=== PATIENT | male | born 1970 | race Caucasian/White ===

== ENCOUNTER 2018-03-27 12:04 | Outpatient (REF) | payer MEDICAID, SELFPAY ==
[2018-03-27 19:05] LABS: HCT 42.5 % (40.0-50.0); HGB 15.1 g/dL (13.5-17.5); Mean Corp. HGB Concentration 35.5 g/dL (32.0-36.0); Mean Corpuscular Hemoglobin 29.2 pg (27.0-33.0); Mean Corpuscular Volume 82.2 fL (80-95); Platelet Count 168 x1000/uL (130-400); RBC 5.17 m/cumm (4.50-6.00); RBC Distribution Width 13.5 % (11.8-14.1); White Blood Cell Count 11.03 k/cumm (4.4-10.8)
[2018-03-27 19:13] LABS: Mono Screening Negative (Negative)
== END 2018-03-27 12:05 ==
LOC: NCHCN 12:04
PROVIDERS: PCP Physician Assistant Medical; Visit Provider Nurse Practitioner Family
DX: R50.9 Fever, unspecified (principal)
CPT/HCPCS: 85027; 86308

== ENCOUNTER 2021-12-27 15:56 | Outpatient (REF) | payer BC, SELFPAY ==
[2021-12-27 16:26] LABS: Source Nasal/Nares
[2021-12-27 20:33] LABS: COVID-19 PCR Negative (Negative)
== END 2021-12-27 15:57 | disposition home or self-care (01) ==
LOC: LBN 15:56
PROVIDERS: PCP Nurse Practitioner Family; Visit Provider Surgery
DX: Z20.822 Contact with and (suspected) exposure to COVID-19 (principal); Z01.818 Encounter for other preprocedural examination
CPT/HCPCS: 87635

== ENCOUNTER 2021-12-28 10:55 | Day surgery (SDC) | payer BC, MEDICAID, SELFPAY ==
[2021-12-28 11:10] VITALS: BP 148/90; PULSE 75; RESP 16; TEMP 36.1; O2SAT 98
[2021-12-28] MEDS: Acetaminophen 500 MG TAB 1000 MG PO (11:22)
[2021-12-28] MEDS: Gabapentin 300 MG CAP 600 MG PO (11:22)
[2021-12-28] MEDS: Lactated Ringers 1,000 ML 80 ML IV (11:36)
--- NOTE | 2021-12-28 11:47 | W.ANESPRE ---
General Info Date of Service Date Performed: 12/28/21 Height: 6 ft 1 in Weight: 112.2 kg Body Mass Index (BMI): 32.6 Surgical Procedure: Operation Date: 12/28/21 12:10 Proposed Procedure Side Surgeon p I&D Sebacous Cyst on Back Nena Joiner, DO Meds Allergies and Home Medications Allergies Allergy/AdvReac Type Severity Reaction Status Date / Time No Known Drug Allergies Allergy Verified 12/28/21 11:20 Home Medication Medication Instructions Recorded Unknown [No Known Home Meds] 12/09/21 Current Visit Medications: Current Medications Generic Name Dose Route Start Last Admin Trade Name Freq PRN Reason Stop Dose Admin Acetaminophen 1,000 mg 12/28/21 06:00 12/28/21 11:22 Acetaminophen 500 Mg Tab PO 01/27/22 23:59 1,000 mg PREOP JACOB Administration Gabapentin 600 mg 12/28/21 06:00 12/28/21 11:22 Gabapentin 300 Mg Cap PO 01/27/22 23:59 600 mg PREOP JACOB Administration Ringer's Solution 1,000 mls @ 80 mls/hr 12/28/21 06:00 12/28/21 11:36 IV 01/27/22 23:59 80 mls/hr INFUSION JACOB Administration Cefazolin Sodium/Dextrose 2 gm in 50 mls @ 100 mls/hr 12/28/21 06:00 Ancef Duplex IVPB 01/27/22 23:59 PREOP JACOB IV Miscellaneous Supplies 1 each 12/28/21 06:00 Iv Access IV 01/27/22 23:59 DIRECTED JACOB Sodium Chloride 0 ml 12/28/21 06:00 Normal Saline Flush 10 Ml Syr IV 01/27/22 23:59 PRN PRN Sodium Chloride 0 ml 12/28/21 06:00 Normal Saline 10 Ml Vial IJ 01/27/22 23:59 DIRECTED PRN Sterile Water 0 ml 12/28/21 06:00 Water,Injection,Sterile 10 Ml Vial IJ 01/27/22 23:59 DIRECTED PRN PFSH Active Problems Active Problems: Problem Status Onset Code Abscess of back L02.212 Infected sebaceous cyst of skin L72.3, L08.9 Medical History Medical History Recurrent unilateral inguinal hernia with incarceration Snoring Surgical History Surgical History (Updated 12/28/21 @ 11:20 by Whitney Durham) H/O hernia repair Tobacco Smoking/Tobacco Use Status: Never Alcohol Alcohol Intake: current Alcohol intake frequency: holidays/special occasions only Substance Use Substance use: Never Substance use type: does not use Vital Signs and Lab Results Vital Signs Most Recent Vital Signs in EMR: Most Recent Vital Signs Temp Pulse Resp BP Pulse Ox 36.1 C L 75 16 148/90 H 98 12/28/21 11:10 12/28/21 11:10 12/28/21 11:10 12/28/21 11:10 12/28/21 11:10 Lab Results Blood Type / Crossmatch: No Data to Display Complete Blood Count: No Data to Display Complete Metabolic Panel: No Data to Display Liver Function Panel: No Data to Display Coagulation Panel: No Data to Display Cardiac Panel: No Data to Display Arterial Blood Gas: No Data to Display Venous Blood Gas: No Data to Display Pancreas Panel: No Data to Display Thyroid Panel: No Data to Display Infectious Disease: Coronavirus (COVID-19)(PCR) Negative (Negative) 12/27/21 15:50 Coronavirus 2019 Source Nasal/Nares 12/27/21 15:50 Blood Cultures: No Data to Display Toxicology Panel: No Data to Display Anesthesia Assessment and Plan Anesthesia History Personal History: No History of Anesthesia Complications Family History: No Family History of Anesthesia Complications Exercise Tolerance Exercise Tolerance: Metabolic Equivalents>4 Pertinent Negatives Pertinent Negatives: No Symptoms of GERD, No Major Cardiovascular Symptoms or Complaints and No Major Pulmonary Symptoms or Complaints Cardiac & Pulmonary Exam Cardiac Exam: Normal S1/S2 Heart Sounds Pulmonary Exam: Clear Bilateral Breath Sounds Implantable Cardiac Device Does patient have a Pacemaker or an ICD?: No Airway Exam Known Difficult Airway: No Mallampati Class: 1 Mouth Opening: Normal (> 3cm) Thyromental Distance: Greater than 3 cm Neck Range of Motion: Full ROM Neck Circumference: Normal Teeth Condition: Normal Dentition ASA Classification ASA Score: ASA 2 Emergency Case?: No NPO Status NPO Status: NPO Clears >2 hours, Solids >8 hours Anesthesia Plan Resuscitation Status: Full Code Anesthesia Technique: General Anesthesia Airway Planned: Natural Airway Monitors Used: Standard Monitors
[2021-12-28 11:52] VITALS: BMI 32.6
[2021-12-28] MEDS: ceFAZolin 2 GM/50 ML BAG IVPB (13:31)
[2021-12-28] MEDS: Bupivacaine 0.5% Pres-Free W/EPI 10 ML VIAL (13:32)
[2021-12-28 13:55] VITALS: BP 138/87; PULSE 82; RESP 16; TEMP 36.3; O2SAT 97
--- NOTE | 2021-12-28 14:08 | W.PM.DSUDISC ---
Discharge Plan Disposition Patient Disposition: HOME Condition: Good Discharge Details Reason For Visit: CHRONICALY INFECTED Attending Provider: Nena Joiner Primary Care Provider: Diana Lopez Home Meds and New Rx's Prescriptions: New tramadol [Ultram] 50 mg tablet 50 mg PO Q4H PRNQty: 7 0RF Discharge Instructions Additional Instructions: Wound Care Instruction Pain Control Use ice!? Ice keeps the swelling down and swelling is what causes pain.? Never apply ice directly to the skin.? Wrap it in a towel or cloth.? Apply ice 20 minutes on and 20 minutes off for pain control.? Use as needed. Take Tylenol 500 mg by mouth with food every 4 hours as needed for pain. Or ibuprofen 600 mg by mouth with food every 6 hours as needed for pain.? Do not take Tylenol if you have a history of heavy drinking, hepatitis C or liver problems.? Do not take ibuprofen if you have a history of stomach ulcers/problems, bleeding problem or kidney issues. ? Always wash your hands before touching your incision. ? Keep the incision clean, dry, and out of water, keep the incision out of water. ? Do not to pick at the scabs. Scabs help protect the wound. ? You can take a shower in 24 hours and wash the incision with soap and water. Pat dry/don?t scrub. It?s OK to wash around the incision. But don?t spray water directly on it. ? Pat stitches dry if they get wet. Don't rub. ? Check the incision site daily for pain, redness, drainage, swelling, or separation of the incision edges. ? Make sure any clothing that touches the incision is loose-fitting. This will prevent rubbing. If the incision is on the head, keep your child from wearing caps or other head coverings. These may rub against the incision. As your incision heals, the skin may appear pink or red. It may also feel slightly bumpy or raised. This is called a healing ridge. Over time, the color should fade and the raised skin will become less noticeable. ? When to seek medical care Call your healthcare provider right away if you have any of these: ? More pain, redness, swelling, bleeding, or foul-smelling discharge around the incision area ? Fever of 101?F (38.3?C) or higher, or as directed by your child's healthcare provider ? Shaking chills ? Vomiting or nausea that doesn?t go away ? Numbness, coldness, or tingling around the incision area, or changes in skin color ? Opening of the sutures or wound -Stitches or haley that come apart or fall out or surgical tape falls off before 7 days, or as directed by your healthcare provider ?[facility]: [phone] ?-you also have Ultram to use for pain >7. For the first 24hrs take tylenol or advil continuously, not just when you have pain. -use ice -follow up w/ Sherrie in Surgery clinic on 12/29 at 1pm for packing change. -There are TWO cavities on either side of the wound (4pm & 7PM). each cavity will need to be packed. -keep clean and dry -Does not require further antibiotics ? ?Your health care provider has covered your wound with a wet-to-dry dressing. With this type of dressing, a wet (or moist) gauze dressing is put on your wound and allowed to dry. Wound drainage and tissue can be removed when you take off the old dressing. Follow any instructions you are given on how to change the dressing. Use this sheet as a reminder. What to Expect at Home Your provider will tell you how often you should change your dressing at home. As the wound heals, you should not need as much gauze or packing gauze. Removing the Old Dressing Follow these steps to remove your dressing: ? Wash your hands thoroughly with soap and warm water before and after each dressing change. Remove the old dressing. If it is sticking to your skin, wet it with warm water to loosen it. ? Remove the gauze pads or packing tape from inside your wound. ? Changing Your Dressing Follow these steps to put a new dressing on: ? Place the gauze pads or packing tape in your wound. Carefully fill in the wound and any spaces under the skin.? Use a cotton tip applicator to gently push the packing material into the wound. ? Cover the wet gauze or packing tape with a large dry dressing pad. Use tape or rolled gauze to hold this dressing in place. ? Wash your hands again when you are finished. When to Call the Doctor Call your doctor if you have any of these changes around your wound: ? Worsening redness ? More pain ? Swelling ? Bleeding ? It is larger or deeper ? It looks dried out or dark ? The drainage is increasing ? The drainage has a bad smell Also call your doctor if: ? Your temperature is 100.5?F (38?C), or higher, for more than 4 hours ? Drainage is coming from or around the wound ? Drainage is not decreasing after 3 to 5 days ? Drainage is increasing ? Drainage becomes thick, hooks, yellow, or smells bad ? Stand Alone Forms: Anesthesia Discharge Inst., Laith Whittaker (DSU) Activity:: see above Remove Dressings/Wound Care:: 24 hours Shower/Bathe:: 24 hours Diet:: As Tolerated
--- NOTE | 2021-12-28 14:10 | W.ANESPOSTOP ---
Postoperative Evaluation Date, Time and Location Date Performed: 12/28/21 Time Performed: 13:10 Patient Location: Day Surgery Unit Vital Signs Most Recent Imported Vital Signs: Most Recent Vital Signs Temp Pulse Resp BP Pulse Ox 36.3 C L 82 16 138/87 97 12/28/21 13:55 12/28/21 13:55 12/28/21 13:55 12/28/21 13:55 12/28/21 13:55 Pain Score Most Recent Pain Score: Most Recent Pain Score Pain Level 0 12/28/21 13:55 Assessment Mental Status: Awake (Alert & Oriented to Patient Baseline) Airway and Respiratory Function: Patent airway with normal (patient baseline) respiratory exam Cardiovascular Function: Hemodynamically Stable Hydration Status: Adequately Hydrated Nausea & Vomiting: No Nausea or Vomiting Pain: Pt. Denies Any Pain Peripheral Nerve Block: Patient did not receive a nerve block
--- NOTE | 2021-12-28 14:18 | ROE_ITS ---
Date of service: 12/28/21 Time of Service: 16:13 Operative Note Operative Note DATE OF PROCEDURE: 12/28/21 PRE-OP DIAGNOSIS: I&D of chronically infected magda cyst POST-OP DIAGNOSIS: same PROCEDURE: I & D SURGEON: Nena Joiner PUBLICATIONS DISTRIBUTION CLERK: Gabbi Real ANESTHESIA TYPE: Local By Surgeon and General:No Airway Refer to Anesthesia Record ESTIMATED BLOOD LOSS: 5 PATHOLOGY: other (culttures were taking prior to starting abx ) COMPLICATIONS: None Patient was transported to: same day Patient's condition: stable Procedure Description: Patient has had an infected sebaceous cyst with abscess for approximately 6 weeks now. He was originally seen up at [facility] and was placed on antibiotics and had an incision and drain done. The wound closed up and the abscess came back. I drained the cyst again in my office on 12/09. The wound continues to not heal and continues to breakdown. I did attempt to do an I&D in my office on 12/27. Patient did not tolerate this well. Patient is here today for repeat I&D with sedation. Informed consent is obtained explaining risks and benefits of procedure including but not limited to bleeding, infection, complications of anesthesia, poor cosmesis, need for continued packing, etc. Patient is marked in preop. He is brought to the surgical suite and placed in the prone position with all bony surfaces padded. Anesthesia is administered per the department of anesthesia. Patient is prepped and draped in usual sterile fashion using a Betadine scrub solution. Timeout is performed. He did receive antibiotics. Aerobic and anaerobic cultures were taking prior to prepping and draping. The incision is infiltrated with 10 cc of 1% lidocaine. Elliptical incision is made to excise the old scar tissue. The wound has healed in the center and then there are 2 pockets going off either direction at 4 and 7:00. Each of this is 2 x 2 x 1 cm. The total wound is approximately 4 x 2 x 1 cm. There is no gross purulence. The tissue is erythematous and indurated. It has the consistency of slimy granulation which is a sign of chronic and infection and unhealthy healing. A ll this tissue was removed sharply with a curette. Bleeding is controlled with electrocautery. It is irrigated with 1 L of saline. The wound is then packed with wet to dry gauze and sterile compression dressing is applied. Patient tolerated the procedure well without complication and transferred to same-day surgery in stable condition. Patient will follow-up in a.m. for dressing change. He will continue to do packing of the wound. He does not require further antibiotics.
[2021-12-28 14:25] VITALS: BP 139/101; PULSE 73; RESP 15; TEMP 36.7; O2SAT 99
[2021-12-28] MEDS: traMADol 50 MG TAB PO (14:34)
[2021-12-28 14:50] VITALS: BP 153/84; PULSE 67; RESP 16; TEMP 36.7; O2SAT 99
== END 2021-12-28 15:20 | disposition home or self-care (01) ==
PROVIDERS: PCP Nurse Practitioner Family; Visit Provider Surgery
PROC: 0JB70ZZ Excision of Back Subcutaneous Tissue and Fascia, Open Approach (ICD-10-PCS; CPT 11042; principal; 2021-12-28 12:00)
DX: L72.3 Sebaceous cyst (principal)
CPT/HCPCS: 11042; 87077; 87070; 87075; 87186; 87205; J0690; J2250; J3010

== ENCOUNTER 2022-12-30 06:14 | Day surgery (SDC) | payer BC, MEDICAID, SELFPAY ==
--- NOTE | 2022-12-29 17:09 | W.ANESPRE ---
General Info Date of Service Date Performed: 12/30/22 Height: 6 ft 2 in Weight: 118.955 kg Body Mass Index (BMI): 33.6 Surgical Procedure: Operation Date: 12/30/22 07:35 Proposed Procedure Side Surgeon kevin Carlton MD Meds Allergies and Home Medications Allergies Allergy/AdvReac Type Severity Reaction Status Date / Time No Known Drug Allergies Allergy Verified 12/30/22 06:23 Current Visit Medications: Current Medications Generic Name Dose Route Start Last Admin Trade Name Freq PRN Reason Stop Dose Admin Ringer's Solution 1,000 mls @ 80 mls/hr 12/30/22 06:00 IV 01/28/23 23:59 INFUSION JACOB IV Miscellaneous Supplies 1 each 12/30/22 06:00 Iv Access IV 01/28/23 23:59 DIRECTED JACOB Sodium Chloride 0 ml 12/30/22 06:00 Normal Saline Flush 10 Ml Syr IV 01/28/23 23:59 PRN PRN Sodium Chloride 0 ml 12/30/22 06:00 Normal Saline 10 Ml Vial IJ 01/28/23 23:59 DIRECTED PRN Sterile Water 0 ml 12/30/22 06:00 Water,Injection,Sterile 10 Ml Vial IJ 01/28/23 23:59 DIRECTED PRN PFSH Active Problems Active Problems: Problem Status Onset Code Hypergranulation L92.9 Abscess of back L02.212 Medical History Medical History (Updated 12/29/22 @ 23:49 by Palomo Carlton MD) Recurrent unilateral inguinal hernia with incarceration Snoring Surgical History Surgical History (Updated 12/29/22 @ 11:10 by Benoit Brady) H/O hernia repair Hx of wisdom tooth extraction Tobacco Smoking/Tobacco Use Status: Current every day Tobacco Type: cigarettes Smoking cigarettes per day: 3 Alcohol Alcohol Intake: current Alcohol intake frequency: a few times a month Substance Use Substance use: Never Substance use type: does not use Vital Signs and Lab Results Vital Signs Most Recent Vital Signs in EMR: Temp Pulse Resp BP Pulse Ox 36.5 C 92 H 18 141/98 H 97 12/30/22 06:23 12/30/22 06:23 12/30/22 06:23 12/30/22 06:23 12/30/22 06:23 Lab Results Blood Type / Crossmatch: No Data to Display Complete Blood Count: No Data to Display Complete Metabolic Panel: No Data to Display Liver Function Panel: No Data to Display Coagulation Panel: No Data to Display Cardiac Panel: No Data to Display Arterial Blood Gas: No Data to Display Venous Blood Gas: No Data to Display Pancreas Panel: No Data to Display Thyroid Panel: No Data to Display Infectious Disease: No Data to Display Blood Cultures: No Data to Display Toxicology Panel: No Data to Display Anesthesia Assessment and Plan Anesthesia History Personal History: No History of Anesthesia Complications Family History: No Family History of Anesthesia Complications Exercise Tolerance Exercise Tolerance: Metabolic Equivalents>4 Cardiac & Pulmonary Exam Cardiac Exam: Normal S1/S2 Heart Sounds Pulmonary Exam: Clear Bilateral Breath Sounds Implantable Cardiac Device Does patient have a Pacemaker or an ICD?: No Airway Exam Known Difficult Airway: No Mallampati Class: 1 Mouth Opening: Normal (> 3cm) Thyromental Distance: Greater than 3 cm Neck Range of Motion: Full ROM Neck Circumference: Normal Teeth Condition: Normal Dentition ASA Classification ASA Score: ASA 2 Emergency Case?: No NPO Status NPO Status: NPO Clears >2 hours, Solids >8 hours Anesthesia Plan Resuscitation Status: Full Code Anesthesia Technique: General Anesthesia Airway Planned: Natural Airway Monitors Used: Standard Monitors Preoperative Comments:: 52 yo male for colo. Sig PMHx: snores, smoker (0-3 cigarettes a day), occ EtOH, denies other major health issues. Previous Anes: - back abscess, fent/midaz, prop, natural airway
--- NOTE | 2022-12-29 23:49 | W.PM.DSUDISC ---
Date of service: 12/30/22 Time of Service: 08:08 Discharge Plan Disposition Patient Disposition: Home Condition: Good Discharge Details Reason For Visit: Screening colonoscopy Attending Provider: Palomo Carlton Primary Care Provider: Diana Lopez Home Meds and New Rx's Prescriptions: Discontinued polyethylene glycol 3350 17 gram/dose powder 238 g PO ONCE Qty: 238 0RF Rx Instructions: take per colonoscopy instructions bisacodyl [Dulcolax (bisacodyl)] 5 mg tablet,delayed release (DR/EC) 5 mg PO ONCE Qty: 4 0RF Rx Instructions: take per colonoscopy instructions Discharge Instructions Instructions: Colorectal Polyps (GEN) Additional Instructions: José, we are able to complete your colonoscopy today without any difficulty. The quality of your prep was very good. He did have 2 polyps. I removed both these completely. I will be in touch when I have the results of the pathology reports. 1. If tolerated, consume a soft, low fiber diet for 1-2 days. 2[address] Do not drive, drink alcohol, operate machinery, make critical decisions, or do activities that require coordination or balance for 24 hours. 3. Because air was put into your colon during the procedure, expelling air from your rectum (passing gas or farting) is normal. 4. You may not have a bowel movement for 1-3 days because of the colonoscopy prep. This is normal. 5. Go directly to the emergency room if you notice any of the following: Develop chills (warm to touch), or if you have a thermometer and your temperature is above 101 Difficulty breathing or difficultly swallowing Persistent vomiting Severe abdominal pain, other than gas cramps Severe chest pain Black, tarry stools Any bleeding ? exceeding one tablespoon 6. Call your physician if the site where your intravenous was started becomes red, swollen, painful, and warm to touch. 7. Your physician has reviewed your pre-procedure medications. Please continue to take those medications as previously ordered. You will be given specific information/education regarding any changes to your medications before leaving. Activity:: Activity as Tolerated Diet:: As Tolerated Discharge Orders Discharge Orders: Discharge Order (Routine); Ordered 12/29/22 Ordered By: Palomo Carlton DS: Diagnosis Discharge Diagnosis (1) Screening for colon cancer: Status: Acute Asessment and Plan: Follow-up on polypectomy results
--- NOTE | 2022-12-29 23:50 | W.COLOREPORT ---
Date of service: 12/30/22 Time of Service: 08:09 Colonoscopy Report Date of procedure: 12/30/22 Pre-op diagnosis general: Screening colonoscopy Post-op diagnosis procedure note: other (Colon polyps) Procedure: Colonoscopy with polypectomy Surgeon: Palomo Carlton Anesthesia Type: General:No Airway Estimated blood loss (mL): 10 Pathology: other (Colon polyp at 90 cm, colon polyp at 40 cm) Complications: None Disposition: same day Indications: José is a 52 year old male here for his first screening colonoscopy Prep: Miralax/Dulcolax Procedure Start Time: 07:33 Procedure End Time: 07:59 Retraction Time: 19 Findings: Colon polyp at 90 cm, colon polyp at 40 cm Procedure Description: After the induction of monitored anesthetic care, and with the patient in left lateral decubitus position, I began by performing an external anorectal exam.? Perineum and skin were normal, as was the anal verge.? There was no evidence of external hemorrhoids.? Next, I performed a digital rectal exam.? I did not appreciate any abnormal findings.? Next, I advanced a colonoscope into the rectal vault.? I performed retroflexion.? This was normal.? Using insufflation, I then advanced the colonoscope beyond the rectal folds and into the sigmoid colon before advancing towards the cecum.? The quality of the prep was adequate.? The scope was noted to be in the cecum by identification of the ileocecal valve and appendiceal orifice.? I then began withdrawing the colonoscope using repeated irrigation as necessary for full evaluation of the colonic mucosa. Around 90 cm from the anal verge I identified a 0.75 cm polyp. ?It appeared sessile in character. ?I was able to remove this with a snare polypectomy. ?I examined the site, and there was minimal bleeding. ?Once this was completed, I continued to withdraw the scope and examine the remainder of the colonic mucosa. There was also a polyp at just 40 cm from the anal verge. This was a little more pedunculated, almost appendage like. Snare polypectomy was used to remove it at its base. There was minimal bleeding. It was approximately 1 cm long in its greatest dimension once the scope was withdrawn to the level of the rectum, great care was taken to examine portions of the rectal folds.? Finally, the scope was withdrawn and the patient was brought to the same-day surgery recovery unit as the anesthetic wore off. ?The findings and instructions were shared with the patient prior to discharge.
[2022-12-30 06:23] VITALS: BP 141/98; PULSE 92; RESP 18; TEMP 36.5; O2SAT 97
[2022-12-30] MEDS: Lactated Ringers 1,000 ML 80 ML IV (06:45)
[2022-12-30 06:50] VITALS: BMI 33.6
--- NOTE | 2022-12-30 07:47 | BOWEL_PTH ---
PATIENT: Joés Albert LOC: [facility] U#:[id number] AGE/SX: 52/M ROOM: RE12/30/[address]: Palomo Carlton MD : 1970 BED: DIS: 12/30/2022 SPEC #: [id number] RECD: 12/30/22 11:54 STATUS: DRU RE #: [id number] GLORIA: 12/30/22 07:[address]: Palomo Carlton DEPT: Surgical Specimen RECD BY: Dinorah Meyer ENTERED: 12/30/22 11:55 SP TYPE: Bowel OTHR DR: Alyson Lopez Tissues: 1 - BIOPSY BOWEL 2 - BIOPSY BOWEL Procedures: GROSS AND MICRO LEVEL 4 Comments: [id number]
[2022-12-30 08:05] VITALS: BP 130/99; PULSE 93; RESP 16; TEMP 36.6; O2SAT 95
--- NOTE | 2022-12-30 08:25 | W.ANESPOSTOP ---
Postoperative Evaluation Date, Time and Location Date Performed: 12/30/22 Time Performed: 08:25 Patient Location: Day Surgery Unit Vital Signs Most Recent Imported Vital Signs: Most Recent Vital Signs Temp Pulse Resp BP Pulse Ox 36.6 C 93 H 16 130/99 H 95 12/30/22 08:05 12/30/22 08:05 12/30/22 08:05 12/30/22 08:05 12/30/22 08:05 Pain Score Most Recent Pain Score: Most Recent Pain Score Pain Level 0 12/30/22 08:05 Assessment Mental Status: Awake (Alert & Oriented to Patient Baseline) Airway and Respiratory Function: Patent airway with normal (patient baseline) respiratory exam Cardiovascular Function: Hemodynamically Stable Hydration Status: Adequately Hydrated Nausea & Vomiting: No Nausea or Vomiting Pain: Pt. Denies Any Pain Peripheral Nerve Block: Patient did not receive a nerve block
[2022-12-30 08:30] VITALS: BP 135/98; PULSE 85; RESP 16; TEMP 36.6; O2SAT 97
== END 2022-12-30 06:15 | disposition home or self-care (01) ==
PROVIDERS: PCP Nurse Practitioner Family; Visit Provider Surgery
PROC: 0DJD8ZZ Inspection of Lower Intestinal Tract, Via Natural or Artificial Opening Endoscopic (ICD-10-PCS; CPT 45378; principal; 2022-12-30 07:30)
DX: Z12.11 Encounter for screening for malignant neoplasm of colon (principal); D12.5 Benign neoplasm of sigmoid colon
CPT/HCPCS: 45385; 88305

== ENCOUNTER 2025-04-16 10:03 | Outpatient (REF) | payer OTHER, SELFPAY ==
[2025-04-16 21:34] LABS: Hemoglobin A1C 5.2 % (<5.7)
[2025-04-16 21:37] LABS: ALT 34 U/L (16-63); AST 28 U/L (15-37); Albumin 4.6 g/dL (3.4-5.0); Alkaline Phosphatase 87 U/L (46-116); Anion Gap 9.3 mmol/L (3-11); BUN 22 mg/dL (7-18); Bilirubin, Total 1.0 mg/dL (0.2-1.0); CO2 27.7 mmol/L (21.0-32.0); Calcium 9.3 mg/dL (8.5-10.1); Calculated LDL 84 mg/dL (<100); Chloride 105 mmol/L (98-107); Cholesterol 143 mg/dL (<200); Estimated GFR 80.27 (mL/min/1.73m2); Glucose 104 mg/dL (74-106); HDL Cholesterol 35 mg/dL (>or=40); Potassium 4.0 mmol/L (3.5-5.1); Sodium 142 mmol/L (136-145); Total Protein 7.5 g/dL (6.4-8.2); Triglyceride 123 mg/dL (<150)
== END 2025-04-16 10:04 | disposition home or self-care (01) ==
LOC: NCHCN 10:03
PROVIDERS: PCP Physician Assistant; Visit Provider Physician Assistant
DX: Z13.220 Encounter for screening for lipoid disorders (principal); Z83.3 Family history of diabetes mellitus
CPT/HCPCS: 80053; 80061; 83036